=== PATIENT | male | born 1960 | race Two or more races ===

== ENCOUNTER → 2024-04-13 | Day surgery (SDC) | payer OTHER ==
[~2024-04-13] VITALS: Ht 177.8 cm; Wt 74.8 kg
[~2024-04-13] MED LIST: ACETYLCHOLINE CHLORIDE INTRAOCULAR SOLUTION 1:100 ELECTROLYTE DILUENT IO ONE; ASPI-1497 PO; ATOR20TA65 PO; BALANCED SALT IRRIG SOLN COMB1 500ML OP NR; BLOOD SUGAR DIAGNOSTIC STRIP TEST SCH; CHOL-36 PO; CYCLOPENTOLATE HCL 1% OPHTH DROPS 2ML LEFTEYE ONE; DEXTROSE 50% WATER 50ML SYRINGE IV PRN; DULA0.75 SQ; FENTANYL CITRATE/PF 50MCG/ML 2ML VIAL ONE; GLIP5TAB22 PO; HYALURONATE SODIUM 10MG/ML 0.55ML SYRINGE IO ONE; HYDROMORPHONE HCL/PF 1MG/ML INJ IV PRN; LISI10TA26 PO; METF-416 PO; MIDAZOLAM HCL 2 MG/2 ML VIAL ONE; ONDANSETRON HCL 4MG/2ML INJ IV PRN; PHENYLEPHRINE HCL 10% OPHTH DROPS 5ML LEFTEYE ONE; SITA100T11 PO; TROPICAMIDE 1% OPHTH DROPS 15ML LEFTEYE ONE
[2024-04-13 07:06] LABS: BASOPHILS % 0.7 % (0.0-2.0); EOSINOPHILS % 4.6 % (0.0-5.0); HEMATOCRIT. 49.2 % (42.0-52.0); HEMOGLOBIN. 16.7 g/dL (14.0-18.0); LYMPHOCYTES % 28.1 % (20.0-50.0); MEAN CORPUSCULAR HGB CONC 33.9 g/dL (31.0-37.0); MEAN CORPUSCULAR VOLUME 85.5 fL (80.0-94.0); MEAN PLATELET VOLUME 8.1 fl (7.4-10.4); MONOCYTES % 7.8 % (2.0-8.0); NEUTROPHILS % 58.8 % (40.0-76.0); PLATELET 203 x1000/uL (130-400); RED BLOOD CELL COUNT 5.76 mill/uL (4.7-6.1); RED CELL DISTRIBUTION WIDTH 13.5 % (11.6-14.6); WHITE BLOOD COUNT 6.4 x1000/uL (4.5-11.0)
[2024-04-13 07:15] LABS: POTASSIUM 5.1 mEq/L (3.5-5.1)
[2024-04-13 07:16] LABS: CALCIUM 10.4 mg/dL (8.7-10.4)
[2024-04-13 07:21] LABS: CREATININE 1.5 mg/dL (0.6-1.3)
[2024-04-13] MEDS: SODIUM CHLORIDE 0.9% 1,000 ML IV SCH (07:23)
[2024-04-13] MEDS: INSULIN LISPRO 100 UNITS/ML SUBCUT SCH (08:02)
== END | disposition home or self-care (01) ==
LOC: OR 06:29
PROVIDERS: ATTEND Ophthalmology
DX: E11.36 Type 2 diabetes mellitus with diabetic cataract (principal); H25.12 Age-related nuclear cataract, left eye; E11.65 Type 2 diabetes mellitus with hyperglycemia; I10 Essential (primary) hypertension; E78.5 Hyperlipidemia, unspecified; Z79.82 Long term (current) use of aspirin; Z79.84 Long term (current) use of oral hypoglycemic drugs; Z79.899 Other long term (current) drug therapy; Z98.890 Other specified postprocedural states
CPT/HCPCS: 66984; 80048; 82962; 85025; 36415; 93005; J3010; J1815; J3490 ×2; J2250